=== PATIENT | female | born 1950 | race Caucasian/White ===

== ENCOUNTER 2019-09-19 11:53 | Outpatient (CLI) | payer MEDICARE, SELFPAY ==
--- NOTE | 2019-09-19 | XR_ITS ---
WS: [id number] Lumbar spine, AP, lateral, L5-S1 spot, flexion and extension lateral, 09/19/2019 Clinical Data: BILATERAL LEG PAIN Comparison: None. Findings: No compression fractures or subluxation is seen. No disc space narrowing is seen. The transverse proc esses and SI joints are normal. No subluxation or limitation of motion occurs during flexion or extension. XR/XR lumbar spine min 4V [id number] Impression: Negative lumbar spine. Negative for limitation of motion or subluxation on flexion or extension.
== END 2019-09-19 11:54 | disposition home or self-care (01) ==
LOC: RADOUTREAD 15:29
PROVIDERS: Family Provider Family Medicine; PCP Family Medicine; Visit Provider Family Medicine
DX: Z76.89 Persons encountering health services in other specified circumstances (principal)

== ENCOUNTER 2019-10-08 10:55 | Outpatient (CLI) | payer MEDICARE, SELFPAY ==
--- NOTE | 2019-10-08 11:46 | MR_ITS ---
WS: [id number] MRI LUMBAR SPINE NONCONTRAST TECHNIQUE: Sagittal T1, T2 and STIR imaging. Axial T1 and T2 imaging. CLINICAL INFORMATION: BILATERAL LEG PAIN COMPARISON: None. FINDINGS: Mild lumbar curve. No acute compression. No high-grade central canal stenosis. L1-L2: Normal. L2-L3: Tiny right foraminal protrusion with mild right foraminal narrowing. Slight narrowing of the r ight subarticular recess. Left foramen is patent. Mild facet arthropathy. L3-L4: Mild annular bulging with slight effacement of the ventral thecal sac. Minimal narrowing of th e right subarticular recess. Spinal canal and foramen are patent. Mild facet arthropathy. L4-L5: Mild annular bulging with slight effacement of the ventral thecal sac. Narrowing subarticular recess bilaterally. Moderate facet arthropathy. Mild right and no significant left foraminal narrowin g. L5-S1: No significant disc bulging. Mild facet arthropathy. Spinal canal and foramen are patent. Postoperative changes anterior cervical fusion C5-C6. Visualized pelvic bony structures: Normal. Paravertebral soft tissues: Normal. MR/MR lumbar spine wo con* [id number] IMPRESSION: 1. Mild lumbar curve. No acute compression. No high-grade central canal stenos is. 2. Small right subarticular and proximal foraminal protrusion L2-3 with mild r ight foraminal narrowing. Slight encroachment traversing right L3 and exiting r ight L2 nerve roots. 3. Mild narrowing of the right L3-4 subarticular recess. 4. Annular bulging L4-5 with slight effacement of ventral thecal sac and narro wing of the subarticular recess bilaterally. Mild right foraminal narrowing. 5. Moderate facet arthropathy L3-L4 and L4-L5.
== END 2019-10-08 10:56 | disposition home or self-care (01) ==
LOC: RADWPI 11:00
PROVIDERS: Family Provider Family Medicine; PCP Family Medicine; Visit Provider Family Medicine
DX: M51.26 Other intervertebral disc displacement, lumbar region (principal); M79.604 Pain in right leg; M79.605 Pain in left leg
CPT/HCPCS: 72148

== ENCOUNTER 2020-06-20 17:17 | Emergency (ER) | payer MEDICARE, SELFPAY ==
[2020-06-20] VITALS (7 sets, daily range): BP systolic 109–154; BP diastolic 79–89; PULSE 84–101; RESP 18–20; TEMP 37.6; O2SAT 93–97; BMI 23.1
--- NOTE | 2020-06-20 18:09 | XR_ITS ---
WS: [id number] XR chest 1V portable [id number] REASON FOR EXAM: fever FINDINGS: There may be a small infiltrate adjacent to the right heart border in the inferior medial right lung field. The lungs are otherwise unremarkable. The heart and mediastinum are within normal limits. XR/XR chest 1V portable [id number] IMPRESSION: Possible small infiltrate adjacent to the right heart border as above compatibl e with acute subacute pneumonitis.
--- NOTE | 2020-06-20 18:41 | W.ED.COVID ---
HPI - COVID General: Chief Complaint: COVID symptoms Stated Complaint: Mild covid symptoms Time Seen by Provider: 06/20/20 17:38 Source: patient Mode of arrival: ambulatory Limitations: no limitations Triage information: Has fever, cough or shortness of breath. No known COVID + exposure last 14 days History of Present Illness: HPI Narrative: Patient has had a few symptoms for the last 2 weeks. 13 days ago, she received the pneumovax and 4 hours after that she had an diarrhea and vomiting. Diarrhea has resolved but she is still vomiting. She got a fever of 103 5 days ago and has daily intermittent fever since then, but not as high. She continues to vomit. Had a cough yesterday but none so far today. She denies urinary symptoms. MD complaint: has COVID symptoms Prior covid testing: yes, results known COVID 19 common symptoms: positive fever(s), chills, cough, fatigue, nausea and vomiting; negative productive cough, dyspnea, body aches, headache(s), loss of sense of smell and/or taste, throat pain, nasal congestion or diarrhea COVID 19 other sytmptoms: negative chest pressure, chest pain, pleuritic pain, requiring oxygen, requiring more oxygen, respiratory distress, cyanosis, lethargy, confusion or new neurological complaints COVID Results: SARS-CoV-2 Antigen (Rapid) Negative (Negative) 06/20/20 18:55 06/20/20 SARS-CoV-2 RNA (RT-PCR) Pending 06/20/20 18:55 06/20/20 Review of Systems General: Reports: 10 or more systems reviewed and unremarkable except in HPI and below Const: Reports: fever(s), chills and fatigue; Denies: body aches Eyes: Denies: change in vision or blurry vision ENMT: Denies: throat pain or nasal congestion Card: Denies: chest pain Resp: Denies: dyspnea or productive cough GI: Reports: nausea and vomiting; Denies: diarrhea : Denies: flank pain, difficulty voiding, dysuria, urinary frequency, urinary urgency or urinary hesitancy Musc: Denies: neck pain, back pain or extremity swelling Skin/Breast: Denies: rash, pruritus or erythema Neuro: Denies: headache(s) or confusion Endo: Denies: polyuria, polydipsia or tired all the time PFSH ED PFSH: Social History Smoking and tobacco status: never smoked Alcohol intake: never Substance/Drug Use: never Physical Exam Const: COMMON NORMALS: no acute distress, average body habitus, patient oriented x3, no limitations, healthy appearing, alert and well nourished HENMT: COMMON NORMALS: normocephalic, atraumatic and moist oral mucous membranes HEAD & SCALP: normocephalic and atraumatic Neck/C-Spine: COMMON NORMALS: no meningeal signs and no JVD Resp: COMMON NORMALS: normal respiratory effort, No retractions, No use of accessory muscles, clear to auscultation bilaterally and percussion normal AUSCULTATION: clear to auscultation bilaterally PERCUSSION: percussion normal Cardio: COMMON NORMALS: no JVD, regular rate, regular rhythm, S1 normal heart sound present, S2 normal heart sound present, No gallops present (Cardio), No clicks present (Cardio), No murmurs present (Cardio), No rub (Cardio) and Peripheral pulses 2+ throughout RATE: regular rate RHYTHM: regular rhythm HEART SOUNDS: S1 normal heart sound present and S2 normal heart sound present PERIPHERAL PULSES: Peripheral pulses 2+ throughout GI: COMMON NORMALS: Normal to inspection, nondistended, normoactive bowel sounds present, Soft to palpation, non-tender, No hepatosplenomegaly present, no masses and no bruits PALPATION: Yes Soft to palpation and Yes No hepatosplenomegaly present Extremity: COMMON NORMALS: normal to inspection, full ROM, capillary refill normal, no calf tenderness and no pedal edema Neuro: COMMON NORMALS: patient oriented x3 SENSORIUM/ORIENTATION: Yes alert MENINGEAL SIGNS: Yes no meningeal signs Skin: COMMON NORMALS: no rashes or lesions noted, no wounds, turgor normal, no jaundice, no petechiae and no mottling GENERAL SKIN EXAM: no rashes or lesions noted and turgor normal Course Reevaluation(s): Reevaluation #1: Discussed her labs and imaging findings with her - negative for acute findings. [facility] send out labs pending. She looks good and likely has a viral illness. Will discharge her home on conservative measures. She voiced understanding and all questions answered. Time: 21:02 Vital Signs: Vital signs: Vital Signs Temperature 99.6 F 06/20/20 17:24 Pulse Rate 89 06/20/20 21:25 Respiratory Rate 18 06/20/20 21:25 Blood Pressure 109/79 06/20/20 21:25 Pulse Oximetry 95 06/20/20 21:25 MDM - COVID MDM Narrative Medical decision making narrative: Patient with clinical features consistent with viral gastroenteritis. She was tested for COVID 19. Tested negative for the rapid test and she has the PCR test sent out. She is discharged home on conservative measures. Differential Diagnosis Differential diagnosis: Likely COVID 19, influenza and other viral infection Medical Records Attestation: I reviewed the patient's medical records. Lab Data Attestation: I reviewed the patient's lab results. Result diagrams: 06/20/20 18:55 06/20/20 18:55 Labs: Lab Results 06/20/20 06/20/20 06/20/20 Range/Units 18:55 18:55 18:55 WBC 5.4 (4.0-10.0) 10^3/uL RBC 4.86 (4.1-5.3) 10^6/uL Hgb 14.5 (11.5-15.3) g/dL Hct 44.5 (37.0-47.0) % MCV 91.6 (81-99) fL MCH 29.8 (28.0-34.0) pg MCHC 32.6 (30.0-36.0) g/dL RDW 12.7 (12.1-15.1) % Plt Count 178 (130-400) 10^3/cmm MPV 10.4 (7.4-10.4) fL Neut % (Auto) 45.8 % Lymph % (Auto) 44.1 % [place] % (Auto) 9.5 % Eos % (Auto) 0.0 % Baso % (Auto) 0.4 % Neut # (Auto) 2.47 (1.8-7.7) 10^3/uL Lymph # (Auto) 2.4 (0.8-4.8) 10^3/uL [place] # (Auto) 0.5 (0.2-0.9) 10^3/uL Eos # (Auto) 0.0 (0.0-0.8) 10^3/uL Baso # (Auto) 0.0 (0.0-0.1) 10^3/uL Nucleated RBC % (auto) 0 % Nucleated RBCs # 0.0 /100WBC Sodium 139 (136-145) mmol/L Potassium 3.8 (3.5-5.1) mmol/L Chloride 103 (98-107) mmol/L Carbon Dioxide 21 L (22-29) mmol/L Anion Gap 18.8 (5-19) BUN 18 (8-23) mg/dL Creatinine 0.5 (0.5-0.9) mg/dL GFR Calculation 123.1 (90-130) mL/min Glucose 106 (65-115) mg/dL Calculated Osmolality 290 (285-295) mOsm/kg Lactic Acid 0.8 (0.5-2.2) mmol/L Calcium 8.9 (8.5-10.5) mg/dL Total Bilirubin 0.2 (0.15-1.2) mg/dL AST 29 (0-32) U/L ALT 20 (0-33) U/L Alkaline Phosphatase 71 (35-105) IU/L C-Reactive Protein 7.8 H (0.0-4.9) mg/L Total Protein 7.4 (6.6-8.7) g/dL Albumin 4.3 (3.5-5.2) g/dL Globulin 3.1 (1.3-4.6) g/dL Procalcitonin 0.07 (0-0.5) ng/mL Urine Color (Yellow) Urine Appearance (CLEAR) Urine pH (5-7) Ur Specific [place] (1.005-1.030) Urine Protein (Negative) Urine Glucose (UA) (Normal) Urine Ketones (Negative) Urine Blood (Negative) Urine Nitrate (Negative) Urine Bilirubin (Negative) Urine Urobilinogen (Negative) mg/dL Ur Leukocyte Esterase (Negative) Influenza Type A Ag (Negative) Influenza Type B Ag (Negative) SARS-CoV-2 Ag (Rapid) (Negative) 06/20/20 06/20/20 06/20/20 Range/Units 18:55 18:55 19:45 WBC (4.0-10.0) 10^3/uL RBC (4.1-5.3) 10^6/uL Hgb (11.5-15.3) g/dL Hct (37.0-47.0) % MCV (81-99) fL MCH (28.0-34.0) pg MCHC (30.0-36.0) g/dL RDW (12.1-15.1) % Plt Count (130-400) 10^3/cmm MPV (7.4-10.4) fL Neut % (Auto) % Lymph % (Auto) % [place] % (Auto) % Eos % (Auto) % Baso % (Auto) % Neut # (Auto) (1.8-7.7) 10^3/uL Lymph # (Auto) (0.8-4.8) 10^3/uL [place] # (Auto) (0.2-0.9) 10^3/uL Eos # (Auto) (0.0-0.8) 10^3/uL Baso # (Auto) (0.0-0.1) 10^3/uL Nucleated RBC % (auto) % Nucleated RBCs # /100WBC Sodium (136-145) mmol/L Potassium (3.5-5.1) mmol/L Chloride (98-107) mmol/L Carbon Dioxide (22-29) mmol/L Anion Gap (5-19) BUN (8-23) mg/dL Creatinine (0.5-0.9) mg/dL GFR Calculation (90-130) mL/min Glucose (65-115) mg/dL Calculated Osmolality (285-295) mOsm/kg Lactic Acid (0.5-2.2) mmol/L Calcium (8.5-10.5) mg/dL Total Bilirubin (0.15-1.2) mg/dL AST (0-32) U/L ALT (0-33) U/L Alkaline Phosphatase (35-105) IU/L C-Reactive Protein (0.0-4.9) mg/L Total Protein (6.6-8.7) g/dL Albumin (3.5-5.2) g/dL Globulin (1.3-4.6) g/dL Procalcitonin (0-0.5) ng/mL Urine Color Yellow (Yellow) Urine Appearance Clear (CLEAR) Urine pH 5 (5-7) Ur Specific [place] 1.025 (1.005-1.030) Urine Protein Neg (Negative) Urine Glucose (UA) Norm (Normal) Urine Ketones 1+ H (Negative) Urine Blood Neg (Negative) Urine Nitrate Negative (Negative) Urine Bilirubin Neg (Negative) Urine Urobilinogen Norm (Negative) mg/dL Ur Leukocyte Esterase Negative (Negative) Influenza Type A Ag Negative (Negative) Influenza Type B Ag Negative (Negative) SARS-CoV-2 Ag (Rapid) Negative (Negative) COVID Results: SARS-CoV-2 Antigen (Rapid) Negative (Negative) 06/20/20 18:55 06/20/20 SARS-CoV-2 RNA (RT-PCR) Pending 06/20/20 18:55 06/20/20 Imaging Data CXR: Attestation: I personally reviewed and interpreted this imaging study as follows: My impression: No acute findings Discharge Plan Discharge Patient Disposition: Home Clinical Impression: Viral gastroenteritis Condition: Stable Prescriptions: New Zofran 4 mg tablet 4 mg PO Q8H PRN (Reason: nausea and vomiting) 5 Days Qty: 20 RF: 0 Discharge Orders: Discharge Order (Routine); Ordered 06/20/20 Ordered By: Keila Chang Referrals: Morgan Harris MD [Primary Care Provider] - 1-3 days Discharge Diet: Advance as tolerated Discharge Activity: Increase activity as tolerated Patient Instructions: Gastroenteritis (ED) Activity Restrictions/Additional Instructions: Return for any new or worsening symptoms. Follow-up with your primary care provider within 3 days. Drink plenty of fluids to keep well-hydrated. Discharge Date/Time: 06/20/20 21:29 Coding Level of Care Code ED Ski Edge Painter for Rajeev Fwd Exam Comprehensive
[2020-06-20] MEDS: ondansetron 2 mg/ML SDV 2 mL 4 MG IVP (19:12)
[2020-06-20] MEDS: sodium chloride 0.9% 1,000 ML 999 ML IV (19:12)
--- NOTE | 2020-06-20 19:15 | PC.NURSE ---
Received report from ADILSON Echeverria
--- NOTE | 2020-06-20 19:15 | PC.NURSE ---
Per chau Echeverria pt needs a updated BP
[2020-06-20 19:18] LABS: Basophils % 0.4 %; Hematocrit 44.5 % (37.0-47.0); Hemoglobin 14.5 g/dL (11.5-15.3); Lymphocytes # 2.4 10^3/uL (0.8-4.8); Lymphocytes % 44.1 %; Mean Corpuscular HGB Conc 32.6 g/dL (30.0-36.0); Mean Corpuscular Hemoglobin 29.8 pg (28.0-34.0); Mean Corpuscular Volume 91.6 fL (81-99); Mean Platelet Volume 10.4 fL (7.4-10.4); Monocytes # 0.5 10^3/uL (0.2-0.9); Monocytes % 9.5 %; Neutrophils # 2.47 10^3/uL (1.8-7.7); Neutrophils % 45.8 %; Nucleated Red Blood Cells % 0 %; Platelet Count 178 10^3/cmm (130-400); Red Blood Count 4.86 10^6/uL (4.1-5.3); Red Cell Distribution Width 12.7 % (12.1-15.1); White Blood Count 5.4 10^3/uL (4.0-10.0)
[2020-06-20 19:35] LABS: Lactic Sepsis W/Reflex 0.8 mmol/L (0.5-2.2)
[2020-06-20 19:37] LABS: Influenza A by IFA Negative (Negative); Influenza B by IFA Negative (Negative)
[2020-06-20 19:38] LABS: SARS Covid-2 Antigen Negative (Negative)
[2020-06-20 19:46] LABS: Procalcitonin 0.07 ng/mL (0-0.5)
[2020-06-20 19:48] LABS: Add Urine Microscopic? NO
[2020-06-20 19:50] LABS: Bilirubin Urine Neg (Negative); Blood Urine Neg (Negative); Glucose Urine UA Norm (Normal); Ketones Urine 1+ (Negative); Leukocyte Esterase Urine Negative (Negative); Nitrate Urine Negative (Negative); Protein Urine Neg (Negative); Specific Gravity, Urine 1.025 (1.005-1.030); Urine Appearance Clear (CLEAR); Urine Color Yellow (Yellow); Urobilinogen Urine Norm (Negative); pH Urine 5 (5-7)
[2020-06-20 19:57] LABS: Alanine Aminotransferase 20 U/L (0-33); Albumin Level 4.3 g/dL (3.5-5.2); Alkaline Phosphatase 71 IU/L (35-105); Anion Gap 18.8 (5-19); Aspartate Amino Transferase 29 U/L (0-32); Blood Urea Nitrogen 18 mg/dL (8-23); C Reactive Protein 7.8 mg/L (0.0-4.9); Calcium 8.9 mg/dL (8.5-10.5); Carbon Dioxide 21 mmol/L (22-29); Chloride 103 mmol/L (98-107); Creatinine Clr Calc Pharmacy 68.7428; Globulin 3.1 g/dL (1.3-4.6); Glomerular Filtration Rate 123.1 mL/min (90-130); Glucose 106 mg/dL (65-115); Osmolality Calculated 290 mOsm/kg (285-295); Potassium 3.8 mmol/L (3.5-5.1); Sodium 139 mmol/L (136-145); Total Bilirubin 0.2 mg/dL (0.15-1.2); Total Protein 7.4 g/dL (6.6-8.7)
--- NOTE | 2020-06-20 20:13 | PC.NURSE ---
pt stated she has not sleep for 48 hours in a row over the past week. Pt stated she has seen her physician and received a medication Trazodone and it has help Pt continued to stated she has a low [id number]% at home x1 and notified her daughters, which in turn keep her up all night every 30 minutes, pt stated she was unable to sleep.
--- NOTE | 2020-06-20 20:36 | PC.NURSE ---
Daughter called to check on status of pt. Daughter and pt's in car in the parking lot. notified provider of family's question about admission or discharge. Provider stated he will be discharge pt soon.
--- NOTE | 2020-06-20 21:25 | PC.NURSE ---
per pt waiting for results.
[2020-06-21 10:14] LABS: NT Pro B Type Natriuretic Pept 41 pg/mL (0-125)
[2020-06-23 11:23] LABS: Quest SARS-CoV-2 RNA NOT DETECTED (NOT DETECTED)
--- NOTE | 2020-06-23 17:47 | PC.NURSE ---
pt contacted and informed of her covid results
--- NOTE | 2020-06-24 08:59 | PC.NURSE ---
spoke to Pt and gave negative COVID results. Pt confirmed understanding.
== END 2020-06-20 21:29 | disposition home or self-care (01) ==
PROVIDERS: Emergency Provider Family Medicine; Family Provider Family Medicine; PCP Family Medicine
DX: A08.4 Viral intestinal infection, unspecified (principal)
CPT/HCPCS: 12345; 71045; 80053; 81003; 83605; 83880; 84145; 85025; 86140; 87426; 87635; 87804; 96361; 96374; 99283; 99284; J2405; J7030

== ENCOUNTER 2020-06-21 16:01 | Outpatient (CLI) | payer MEDICARE, SELFPAY ==
[2020-06-21 16:51] LABS: D Dimer 0.62 ug/mIFEU (0-0.59)
== END 2020-06-21 16:02 | disposition home or self-care (01) ==
LOC: LAB 16:04
PROVIDERS: PCP Family Medicine; Visit Provider Family Medicine
DX: R06.00 Dyspnea, unspecified (principal)
CPT/HCPCS: 85378

== ENCOUNTER 2020-06-24 12:54 | Outpatient (CLI) | payer MEDICARE, SELFPAY ==
[2020-06-24 13:31] LABS: D Dimer 0.59 ug/mIFEU (0-0.59)
== END 2020-06-24 12:55 | disposition home or self-care (01) ==
LOC: LAB 12:57
PROVIDERS: PCP Family Medicine; Visit Provider Family Medicine
DX: R50.9 Fever, unspecified (principal); R79.89 Other specified abnormal findings of blood chemistry
CPT/HCPCS: 85378; 86140

== ENCOUNTER 2022-06-12 13:48 | Outpatient (CLI) | payer MEDICARE, SELFPAY ==
--- NOTE | 2022-06-12 13:55 | XR_ITS ---
WS: [id number] DEXA (DUAL ENERGY X-RAY ABSORPTIOMETRY) Bone mineral density was performed using a [id number] machine. HISTORY: POST MENOPAUSAL COMPARISON: None available. Lumbar spine BMD (L1-L4): 1.084 g/cm2 T score: -0.8 Z score: 0.8 Total hip BMD: Left: 0.909 g/cm2. T score: -0.8 Z score: 0.6 Right: 0.912 g/cm2. T score: -0.8 Z score: 0.6 10 year probability of a major osteoporotic fracture is 9.6%. XR/XR DEXA axial skeleton* [id number] IMPRESSION: NORMAL BONE MINERAL DENSITY based upon the WHO classification for females.
== END 2022-06-12 13:49 | disposition home or self-care (01) ==
LOC: RAD 13:50
PROVIDERS: PCP Family Medicine; Visit Provider Family Medicine
DX: Z78.0 Asymptomatic menopausal state (principal)
CPT/HCPCS: 77080

== ENCOUNTER → 2022-08-25 10:23 | Outpatient (BNVA) | payer MEDICARE, SELFPAY | PROVIDERS: PCP Family Medicine; Visit Provider Internal Medicine | DX: R00.0 Tachycardia, unspecified (principal); E03.9 Hypothyroidism, unspecified; R79.89 Other specified abnormal findings of blood chemistry; Z79.890 Hormone replacement therapy | CPT/HCPCS: 36415; 83516; 84439; 84443; 84480; 86376; 86800; 99204 ==

== ENCOUNTER 2022-09-06 10:24 | Outpatient (CLI) | payer MEDICARE, SELFPAY | END 2022-09-06 10:25 | disposition home or self-care (01) | LOC: LAB 10:25 | PROVIDERS: PCP Family Medicine; Visit Provider Family Medicine | DX: Z01.89 Encounter for other specified special examinations (principal) | CPT/HCPCS: 87493; 87506 ==

== ENCOUNTER 2022-10-27 08:37 | Outpatient (CLI) | payer MEDICARE, SELFPAY ==
[2022-10-27 09:53] LABS: Free T4 Free Thyroxine 1.29 ng/dL (0.82-1.77); Thyroid Stimulating Hormone 0.77 uIU/mL (0.27-4.20)
[2022-10-28 08:05] LABS: T3 Total 91 ng/dL (76-181)
== END 2022-10-27 08:38 | disposition home or self-care (01) ==
LOC: LAB 08:40
PROVIDERS: PCP Family Medicine; Visit Provider Internal Medicine
DX: E03.9 Hypothyroidism, unspecified (principal); R79.89 Other specified abnormal findings of blood chemistry
CPT/HCPCS: 36415; 84439; 84443; 84480

== ENCOUNTER → 2022-11-01 12:54 | Outpatient (BNVA) | payer MEDICARE, SELFPAY | PROVIDERS: PCP Family Medicine; Visit Provider Internal Medicine | DX: E06.3 Autoimmune thyroiditis (principal); E03.8 Other specified hypothyroidism; R00.0 Tachycardia, unspecified; Z79.890 Hormone replacement therapy | CPT/HCPCS: 99214 ==

== ENCOUNTER 2022-12-22 09:18 | Outpatient (CLI) | payer MEDICARE, SELFPAY ==
[2022-12-22 10:14] LABS: Free T4 Free Thyroxine 1.29 ng/dL (0.82-1.77); Thyroid Stimulating Hormone 1.24 uIU/mL (0.27-4.20)
[2022-12-25 01:54] LABS: T3 Total 97 ng/dL (76-181)
== END 2022-12-22 09:19 | disposition home or self-care (01) ==
LOC: LAB 09:21
PROVIDERS: PCP Family Medicine; Visit Provider Internal Medicine
DX: E03.8 Other specified hypothyroidism (principal); E06.3 Autoimmune thyroiditis; R00.0 Tachycardia, unspecified
CPT/HCPCS: 36415; 84439; 84443; 84480

== ENCOUNTER → 2022-12-26 08:19 | Outpatient (BNVA) | payer MEDICARE, SELFPAY | PROVIDERS: PCP Family Medicine; Visit Provider Internal Medicine | DX: E11.9 Type 2 diabetes mellitus without complications (principal); E03.8 Other specified hypothyroidism; R00.0 Tachycardia, unspecified; E06.3 Autoimmune thyroiditis; Z79.890 Hormone replacement therapy | CPT/HCPCS: 99214 ==

== ENCOUNTER 2023-07-19 13:28 | Outpatient (CLI) | payer MEDICARE, SELFPAY ==
[2023-07-19 15:08] LABS: Free T4 Free Thyroxine 1.18 ng/dL (0.82-1.77); Thyroid Stimulating Hormone 1.31 uIU/mL (0.27-4.20)
== END 2023-07-19 13:29 | disposition home or self-care (01) ==
LOC: LAB 13:34
PROVIDERS: PCP Family Medicine; Visit Provider Internal Medicine
DX: E11.9 Type 2 diabetes mellitus without complications (principal); E03.8 Other specified hypothyroidism; E06.3 Autoimmune thyroiditis
CPT/HCPCS: 36415; 84439; 84443

== ENCOUNTER → 2023-08-03 10:28 | Outpatient (BNVA) | payer MEDICARE, SELFPAY | PROVIDERS: PCP Family Medicine; Visit Provider Internal Medicine | DX: R00.0 Tachycardia, unspecified (principal); E03.8 Other specified hypothyroidism; E06.3 Autoimmune thyroiditis; Z79.890 Hormone replacement therapy | CPT/HCPCS: 99214 ==

== ENCOUNTER 2023-10-03 01:33 | Emergency (ER) | payer MEDICARE, SELFPAY ==
--- NOTE | 2023-10-03 01:39 | XRR_ITS ---
PROCEDURE INFORMATION: Exam: XR Chest Exam date and time: 10/03/2023 1:57 AM Age: 73 years old Clinical indication: Cough and shortness of breath; Additional info: SOB TECHNIQUE: Imaging protocol: Radiologic exam of the chest. Views: 1 view. COMPARISON: CR XR chest 2V* [id number] 06/24/2020 12:21 PM FINDINGS: Lungs: Unremarkable. No consolidation. Pleural spaces: Chronic blunting of the left costophrenic angle. Heart/Mediastinum: Unremarkable. No cardiomegaly. Bones/joints: Unremarkable. XR/XR chest 1V portable [id number] IMPRESSION: No focal acute chest abnormality identified.
[2023-10-03 01:41] VITALS: BP 123/70; PULSE 130; RESP 20; TEMP 38.3; O2SAT 92
--- NOTE | 2023-10-03 01:46 | ED_ITS ---
HPI - SOB/Dyspnea 2 General: Chief Complaint: Shortness of Breath/Dyspnea Stated Complaint: sob, flu A postive Time Seen by Provider: 10/03/23 01:39 Source: patient Mode of arrival: ambulatory Limitations: no limitations History of Present Illness: HPI Narrative: 73-year-old female who states she has bah d cough congestion fever body aches since Sunday she is seen by her PCP Sunday diagnosed with influenza started on Tamiflu. She states that throughout the night she has had much worsening cough and shortness of breath states her pulse ox at home was in the 80s it is 89% here and she has a cough and fever. She denies any vomiting denies any diarrhea. 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 History of head injury Hypothyroidism IBS (irritable bowel syndrome) Vitamin D deficiency Hx of coronary angiogram Surgical History History of hysterectomy History of laminectomy History of colonoscopy Family History Other CAD (coronary artery disease) Cancer Social History Smoking and tobacco/nicotine status: never used tobacco/nicotine Alcohol intake: never Substance/Drug Use: never Physical Exam 2 Const: COMMON NORMALS: patient oriented x3 HENMT: COMMON NORMALS: normocephalic and atraumatic HEAD & SCALP: n ormocephalic and atraumatic Eye: COMMON NORMALS: Equal, round and reactive pupils present and EOMs intact bilaterally PUPIL: Yes Equal, round and reactive pupils present Neck/C-Spine: COMMON NORMALS: full ROM and supple Chest: COMMONS NORMALS: normal inspection of the chest and normal palpation of entire chest wall Resp: COMMON NORMALS: No retractions, No use of accessory muscles and clear to auscultation bilaterally EFFORT & INSPECTION: Yes tachypneic AUSCULTATION: clear to auscultation bilaterally Cardio: COMMON NORMALS: regular rhythm and No murmurs present (Cardio) R ATE: tachycardic RHYTHM: regular rhythm GI: COMMON NORMALS: Normal to inspection, nondistended, normoactive bowel sounds present, Soft to palpation, non-tender and no masses PALPATION: Yes Soft to palpation Extremity: COMMON NORMALS: normal to inspection and full ROM Neuro: COMMON NORMALS: patient oriented x3, moves all extremities and no focal motor deficits Psych: COMMON NORMALS: mental status grossly normal, Normal thought process present and cooperative THOUGHT PROCESS: Normal thought process present Skin: COMMON NORMALS: no rashes or lesions noted and no wounds GENERAL SKIN EXAM: no rashes or lesions noted Course 2 Vital Signs: Vital signs: Vital Signs Temperature 101.0 F H 10/03/23 01:41 Pulse Rate 112 H 10/03/23 03:03 Respiratory Rate 20 H 10/03/23 03:03 Blood Pressure 101/59 10/03/23 03:03 Pulse Oximetry 92 10/03/23 03:03 Oxygen Delivery Me thod Room Air 10/03/23 02:12 MDM - SOB/Dyspnea Medical Decision Making Patient presents here with influenza she had some mild hypoxia with pulse ox at 92 at this time. She has some slight improvement after albuterol treatment she is on Tamiflu. I did offer admission she states she would like to try to continue her treatment at home we will send her Jennyfer Alexis along with albuterol prescription. She is to follow-up with her PCP and return if worsening. Medical Records I reviewed the patient's medical records. Lab Data I reviewed the patient's lab results. 10/03/23 01:52 10/03/23 01:52 Labs/Radiology: Radiology Impressions Chest X-Ray 10/03/23 01:39 IMPRESSION: No focal acute chest abnormality identified. Laboratory Results WBC 12.28 10^3/uL (3.29-11.43) H 10/03/23 01:52 RBC 4.86 10^6/uL (3.85-5.65) 10/03/23 01:52 Hgb 14.80 g/dL (11.27-16.99) 10/03/23 01:52 Hct 44.1 % (36-47) 10/03/23 01:52 MCV 90.7 fl (85-98) 10/03/23 01:52 MCH 30.5 pg (27-33) 10/03/23 01:52 MCHC 33.6 g/dL (30-55) 10/03/23 01:52 RDW 12.5 % (12.1-15.1) 10/03/23 01:52 Plt Count 152 10^3/cmm (157-399) L 10/03/23 01:52 MPV 10.0 fL (7.4-10.4) 10/03/23 01:52 Neut % (Auto) 70.3 % 10/03/23 01:52 Lymph % (Auto) 18.2 % 10/03/23 01:52 [place] % (Auto) 10.6 % 10/03/23 01:52 Eos % (Auto) 0.4 % 10/03/23 01:52 Baso % (Auto) 0.2 % 10/03/23 01:52 Neut # (Auto) 8.62 10^3/uL (1.8-7.7) H 10/03/23 01:52 Lymph # (Auto) 2.2 10^3/uL (0.8-4.8) 10/03/23 01:52 [place] # (Auto) 1.3 10^3/uL (0.2-0.9) H 10/03/23 01:52 Eos # (Auto) 0.1 10^3/uL (0.0-0.8) 10/03/23 01:52 Baso # (Auto) 0.0 10^3/uL (0.0-0.1) 10/03/23 01:52 Nucleated RBC % (auto) 0 % 10/03/23 01:52 Nucleated RBCs # 0.0 /100WBC 10/03/23 01:52 Sodium 136 mmol/L (136-145) 10/03/23 01:52 Potassium 3.9 mmol/L (3.5-5.1) 10/03/23 01:52 Chloride 102 mmol/L (98-107) 10/03/23 01:52 Carbon Dioxide 21 mmol/L (22-29) L 10/03/23 01:52 Anion Gap 16.9 (5-19) 10/03/23 01:52 BUN 20 mg/dL (8-23) 10/03/23 01:52 Creatinine 0.7 mg/dL (0.5-0.9) 10/03/23 01:52 GFR Calculation Not Reportable 10/03/23 01:52 Glucose 118 mg/dL (65-115) H 10/03/23 01:52 Calculated Osmolality 286 mOsm/kg (285-295) 10/03/23 01:52 Lactic Acid 1.0 mmol/L (0.5-2.2) 10/03/23 01:52 Calcium 8.9 mg/dL (8.5-10.5) 10/03/23 01:52 Total Bilirubin 0.4 mg/dL (0.15-1.2) 10/03/23 01:52 AST 25 U/L (0-32) 10/03/23 01:52 ALT 16 U/L (0-33) 10/03/23 01:52 Alkaline Phosphatase 95 U/L (35-105) 10/03/23 01:52 NT-Pro-B Natriuret Pep 46 pg/mL (0-125) 10/03/23 01:52 Total Protein 7.3 g/dL (6.6-8.7) 10/03/23 01:52 Albumin 4.1 g/dL (3.5-5.2) 10/03/23 01:52 Globulin 3.2 g/dL (1.3-4.6) 10/03/23 01:52 All radiology interpretation(s) finalized by discharge Discharge Plan Discharge Patient Disposition: Home Clinical Impression: Influenza Prescriptions: New benzonatate 100 mg capsule 100 mg PO TID PRN (Reason: cough) Qty: 14 0RF albuterol sulfate 90 mcg/actuation HFA aerosol inhaler 2 inh INHALATION Q6H PRN (Reason: shortness of breath or wheezing) Qty: 8 0RF No Action metoprolol succinate 25 mg tablet extended release 24 hr 25 mg PO DAILY cholecalciferol (vitamin D3) 125 mcg (5,000 unit) tablet 125 mcg PO DAILY nitroglycerin 0.4 mg tablet, sublingual 0.4 mg sublingual Q5M PRN Rx Instructions: do not exceed 3 doses per episode aspirin 81 mg tablet,delayed release (DR/EC) 81 mg PO DAILY tramadol 50 mg tablet 50 mg PO DAILY levothyroxine 88 mcg tablet See Rx Instructions .ROUTE .COMPLEX Qty: 90 1RF Dose Instruction: TAKE 1 TABLET BY MOUTH EVERY DAY Rx Instructions: TAKE 1 TABLET BY MOUTH EVERY DAY Discharge Orders: Discharge ED (Routine); Ordered 10/03/23 Ordered By: Boni Sawant Referrals: Morgan Harris MD [Primary Care Provider] - 4-7 days Discharge Diet: Advance as tolerated Discharge Activity: Resume usual activity Patient Instructions: Influenza (ED) Coding Level of Care Code ED Demonstrator Knitting for Rajeev Cortes
[2023-10-03 01:53] VITALS: BP 123/70; PULSE 118; RESP 16; O2SAT 91
[2023-10-03] MEDS: dexamethasone 10 mg/mL INJ IVP (01:58)
[2023-10-03] MEDS: acetaminophen 500 mg Tablet 1000 MG PO (01:58)
[2023-10-03] MEDS: sodium chloride 0.9% 1,000 ML 999 ML IV ×2 (01:59→03:03)
[2023-10-03 02:04] LABS: Basophils % 0.2 %; Eosinophils # 0.1 10^3/uL (0.0-0.8); Eosinophils % 0.4 %; Hematocrit 44.1 % (36-47); Lymphocytes # 2.2 10^3/uL (0.8-4.8); Lymphocytes % 18.2 %; Mean Corpuscular HGB Conc 33.6 g/dL (30-55); Mean Corpuscular Hemoglobin 30.5 pg (27-33); Mean Corpuscular Volume 90.7 fl (85-98); Monocytes # 1.3 10^3/uL (0.2-0.9); Monocytes % 10.6 %; Neutrophils # 8.62 10^3/uL (1.8-7.7); Neutrophils % 70.3 %; Nucleated Red Blood Cells % 0 %; Platelet Count 152 10^3/cmm (157-399); Red Blood Count 4.86 10^6/uL (3.85-5.65); Red Cell Distribution Width 12.5 % (12.1-15.1); White Blood Count 12.28 10^3/uL (3.29-11.43)
[2023-10-03] MEDS: albuterol 2.5 mg/3 mL Neb INHALATION (02:11)
[2023-10-03] MEDS: ipratropium-albuterol 3 mL Neb INHALATION (02:11)
[2023-10-03 02:12] VITALS: PULSE 110; RESP 20; O2SAT 94
[2023-10-03 02:23] VITALS: PULSE 116
[2023-10-03 02:35] LABS: Albumin Level 4.1 g/dL (3.5-5.2); Alkaline Phosphatase 95 U/L (35-105); Anion Gap 16.9 (5-19); Aspartate Amino Transferase 25 U/L (0-32); Blood Urea Nitrogen 20 mg/dL (8-23); Calcium 8.9 mg/dL (8.5-10.5); Carbon Dioxide 21 mmol/L (22-29); Chloride 102 mmol/L (98-107); Globulin 3.2 g/dL (1.3-4.6); Glucose 118 mg/dL (65-115); NT Pro B Type Natriuretic Pept 46 pg/mL (0-125); Osmolality Calculated 286 mOsm/kg (285-295); Potassium 3.9 mmol/L (3.5-5.1); Sodium 136 mmol/L (136-145); Total Bilirubin 0.4 mg/dL (0.15-1.2); Total Protein 7.3 g/dL (6.6-8.7)
[2023-10-03 02:46] LABS: Alanine Aminotransferase 16 U/L (0-33)
[2023-10-03 03:03] VITALS: BP 101/59; PULSE 112; RESP 20; O2SAT 92
--- NOTE | 2023-10-03 03:25 | PC.NURSE ---
Dr Sawant has discussed with patient staying for monitoring due to O2 dropping at times and having a cough. Pt was asked again by myself if she would rather stay to be monitored for her O2. Pt stated she preferred to go home. Pt was educated and educated that if patient gets any worse or they have any new concerns to come back to the ER.
[2023-10-03 03:31] VITALS: O2SAT 94
[2023-10-03] MEDS: albuterol 8 gm MDI 2 PUFF INHALATION (03:31)
== END 2023-10-03 03:33 | disposition home or self-care (01) ==
PROVIDERS: Emergency Provider Emergency Medicine; PCP Family Medicine
DX: J11.1 Influenza due to unidentified influenza virus with other respiratory manifestations (principal); Z79.82 Long term (current) use of aspirin
CPT/HCPCS: 36415; 71045; 80053; 83605; 83880; 85025; 87040; 94640; 96361; 96374; 99284; J1100; J3535; J7030; J7613

== ENCOUNTER 2023-10-10 20:37 | Emergency (ER) | payer MEDICARE, SELFPAY ==
--- NOTE | 2023-10-10 20:44 | XRR_ITS ---
PROCEDURE INFORMATION: Exam: XR Chest Exam date and time: 10/10/2023 9:09 PM Age: 73 years old Clinical indication: Shortness of breath; Additional info: SOB TECHNIQUE: Imaging protocol: Radiologic exam of the chest. Views: 1 view. COMPARISON: CR XR chest 2V* [id number] 10/09/2023 11:21 AM FINDINGS: Lungs: Left lower lobe atelectasis versus infiltrate. Pleural spaces: Trace left pleural effusion. Heart/Mediastinum: Unremarkable. No cardiomegaly. Bones/joints: Unremarkable. XR/XR chest 1V portable [id number] IMPRESSION: 1. Left lower lobe atelectasis versus infiltrate. 2. Trace left pleural effusion.
[2023-10-10 20:48] VITALS: BP 126/73; PULSE 112; RESP 20; TEMP 37; O2SAT 93; BMI 23.1
--- NOTE | 2023-10-10 21:25 | W.ED.URI ---
HPI - URI/Sore Throat General: Chief Complaint: Upper Respiratory Infection Stated Complaint: low o2 Time Seen by Provider: 10/10/23 21:15 History of Present Illness: Patient presents to the ER with complaints of shortness of breath. Patient was diagnosed approximately week ago for with influenza A. Since then she is only gone downhill. She seen her family doctor approximately 3 times. She is on she is been just more short of breath every day since she got diagnosed with influenza. Patient before then was not very short of breath at all. Patient says her oxygen gets all the way down to 83% and she has problems sleeping especially while lying flat. Review of Systems General: Reports: 10 or more systems reviewed and unremarkable except in HPI and below PFSH ED PFSH: Medical History Mass of neck with history of malignant neoplasm History of head injury Hypothyroidism IBS (irritable bowel syndrome) Vitamin D deficiency Hx of coronary angiogram Surgical History History of hysterectomy History of laminectomy History of colonoscopy Family History Other CAD (coronary artery disease) Cancer Social History Smoking and tobacco/nicotine status: never used tobacco/nicotine Alcohol intake: never Substance/Drug Use: never Physical Exam Const: COMMON NORMALS: no acute distress, average body habitus, patient oriented x3, no limitations, healthy appearing, alert and well nourished HENMT: COMMON NORMALS: normocephalic, atraumatic, hearing grossly normal bilaterally, external ears normal, EAC's normal, Normal external nose present, moist oral mucous membranes and oropharynx normal HEAD & SCALP: normocephalic and atraumatic NOSE: Normal external nose present EXTERNAL EAR: Yes external ears normal EXTERNAL AUDITORY CANAL: EAC's normal Neck/C-Spine: COMMON NORMALS: full ROM, no lymphadenopathy, supple, no meningeal signs, no JVD and Thyroid normal THYROID: Thyroid normal Chest: COMMONS NORMALS: normal inspection of the chest and normal palpation of entire chest wall Resp: COMMON NORMALS: normal respiratory effort, No retractions, No use of accessory muscles and clear to auscultation bilaterally AUSCULTATION: clear to auscultation bilaterally Cardio: COMMON NORMALS: no JVD, regular rhythm, S1 normal heart sound present, S2 normal heart sound present, No gallops present (Cardio), No clicks present (Cardio), No murmurs present (Cardio) and No rub (Cardio); negative for regular rate (Mildly tachycardic) RATE: abnormal rate (Mildly tachycardic) RHYTHM: regular rhythm HEART SOUNDS: S1 normal heart sound present and S2 normal heart sound present GI: COMMON NORMALS: Normal to inspection, nondistended, normoactive bowel sounds present, Soft to palpation, non-tender, No hepatosplenomegaly present and no masses PALPATION: Yes Soft to palpation and Yes No hepatosplenomegaly present Neuro: COMMON NORMALS: patient oriented x3 SENSORIUM/ORIENTATION: Yes alert MENINGEAL SIGNS: Yes no meningeal signs Course Vital Signs: Vital signs: Vital Signs Temperature 98.6 F 10/10/23 20:48 Pulse Rate 112 H 10/10/23 20:48 Respiratory Rate 20 H 10/10/23 20:48 Blood Pressure 126/73 10/10/23 20:48 Pulse Oximetry 90 10/10/23 23:04 Oxygen Delivery Me thod Room Air 10/10/23 20:48 Oxygen Flow Rate 2 10/10/23 23:04 MDM - URI/Sore Throat Medical Decision Making Patient is a known diagnosis of influenza, patient is currently on steroids and antibiotics, patient still feels short of breath and noticed her oxygen was all the way down to about 84% on room air. Chest x-ray was obtained which was unchanged. Lab work was obtained which was unremarkable except for 17,000 white count which is probably due to her steroids. Home oxygen study was performed which patient failed. Patient be placed on 2 L of oxygen per nasal cannula patient should follow-up with her PCP within next 7 days. Differential Diagnosis Likely influenza Medical Records I reviewed the patient's medical records. Lab Data I reviewed the patient's lab results. 10/10/23 21:18 10/10/23 21:18 Radiology Impressions Chest X-Ray 10/10/23 20:44 IMPRESSION: 1. Left lower lobe atelectasis versus infiltrate. 2. Trace left pleural effusion. Laboratory Results WBC 17.50 10^3/uL (3.29-11.43) H 10/10/23 21:18 RBC 4.55 10^6/uL (3.85-5.65) 10/10/23 21:18 Hgb 13.70 g/dL (11.27-16.99) 10/10/23 21:18 Hct 42.4 % (36-47) 10/10/23 21:18 MCV 93.2 fl (85-98) 10/10/23 21:18 MCH 30.1 pg (27-33) 10/10/23 21:18 MCHC 32.3 g/dL (30-55) 10/10/23 21:18 RDW 12.6 % (12.1-15.1) 10/10/23 21:18 Plt Count 423 10^3/cmm (157-399) H 10/10/23 21:18 MPV 9.4 fL (7.4-10.4) 10/10/23 21:18 Neut % (Auto) 74.3 % 10/10/23 21:18 Lymph % (Auto) 17.1 % 10/10/23 21:18 [place] % (Auto) 6.3 % 10/10/23 21:18 Eos % (Auto) 0.4 % 10/10/23 21:18 Baso % (Auto) 0.4 % 10/10/23 21:18 Neut # (Auto) 13.00 10^3/uL (1.8-7.7) H 10/10/23 21:18 Lymph # (Auto) 3.0 10^3/uL (0.8-4.8) 10/10/23 21:18 [place] # (Auto) 1.1 10^3/uL (0.2-0.9) H 10/10/23 21:18 Eos # (Auto) 0.1 10^3/uL (0.0-0.8) 10/10/23 21:18 Baso # (Auto) 0.1 10^3/uL (0.0-0.1) 10/10/23 21:18 Nucleated RBC % (auto) 0 % 10/10/23 21:18 Nucleated RBCs # 0.0 /100WBC 10/10/23 21:18 Sodium 139 mmol/L (136-145) 10/10/23 21:18 Potassium 4.0 mmol/L (3.5-5.1) 10/10/23 21:18 Chloride 101 mmol/L (98-107) 10/10/23 21:18 Carbon Dioxide 27 mmol/L (22-29) 10/10/23 21:18 Anion Gap 15.0 (5-19) 10/10/23 21:18 BUN 16 mg/dL (8-23) 10/10/23 21:18 Creatinine 0.7 mg/dL (0.5-0.9) 10/10/23 21:18 GFR Calculation Not Reportable 10/10/23 21:18 Glucose 82 mg/dL (65-115) 10/10/23 21:18 Calculated Osmolality 288 mOsm/kg (285-295) 10/10/23 21:18 Calcium 8.8 mg/dL (8.5-10.5) 10/10/23 21:18 Total Bilirubin 0.3 mg/dL (0.15-1.2) 10/10/23 21:18 AST 28 U/L (0-32) 10/10/23 21:18 ALT 25 U/L (0-33) 10/10/23 21:18 Alkaline Phosphatase 80 U/L (35-105) 10/10/23 21:18 NT-Pro-B Natriuret Pep 73 pg/mL (0-125) 10/10/23 21:18 Total Protein 7.7 g/dL (6.6-8.7) 10/10/23 21:18 Albumin 3.9 g/dL (3.5-5.2) 10/10/23 21:18 Globulin 3.8 g/dL (1.3-4.6) 10/10/23 21:18 All radiology interpretation(s) finalized by discharge Discharge Plan Discharge Patient Disposition: Home Clinical Impression: Influenza, Acute hypoxemic respiratory failure Condition: Stable Prescriptions: No Action metoprolol succinate 25 mg tablet extended release 24 hr 25 mg PO DAILY cholecalciferol (vitamin D3) 125 mcg (5,000 unit) tablet 125 mcg PO DAILY nitroglycerin 0.4 mg tablet, sublingual 0.4 mg sublingual Q5M PRN Rx Instructions: do not exceed 3 doses per episode aspirin 81 mg tablet,delayed release (DR/EC) 81 mg PO DAILY tramadol 50 mg tablet 50 mg PO DAILY levothyroxine 88 mcg tablet See Rx Instructions .ROUTE .COMPLEX Qty: 90 1RF Dose Instruction: TAKE 1 TABLET BY MOUTH EVERY DAY Rx Instructions: TAKE 1 TABLET BY MOUTH EVERY DAY benzonatate 100 mg capsule 100 mg PO TID PRN (Reason: cough) Qty: 14 0RF albuterol sulfate 90 mcg/actuation HFA aerosol inhaler 2 inh INHALATION Q6H PRN (Reason: shortness of breath or wheezing) Qty: 8 0RF Discharge Orders: Discharge ED (Routine); Ordered 10/10/23 Ordered By: Jose Mancia Other Ambulatory Orders: DME: Oxygen (Order) Location: None Selected Ordered By: Jose Mancia Referrals: Morgan Harris MD [Primary Care Provider] - 1 week Patient Instructions: Influenza (ED), Acute Respiratory Failure (ED) Activity Restrictions/Additional Instructions: He failed your home oxygen test and therefore you require 2 L of oxygen per nasal cannula at all times. Please wear this continuously until seen by your family practice physician for further evaluation and treatment. Coding Level of Care Code ED [employer] Consultant for Rajeev Cortes
[2023-10-10 21:49] LABS: Basophils # 0.1 10^3/uL (0.0-0.1); Basophils % 0.4 %; Eosinophils # 0.1 10^3/uL (0.0-0.8); Eosinophils % 0.4 %; Hematocrit 42.4 % (36-47); Lymphocytes % 17.1 %; Mean Corpuscular HGB Conc 32.3 g/dL (30-55); Mean Corpuscular Hemoglobin 30.1 pg (27-33); Mean Corpuscular Volume 93.2 fl (85-98); Mean Platelet Volume 9.4 fL (7.4-10.4); Monocytes # 1.1 10^3/uL (0.2-0.9); Monocytes % 6.3 %; Neutrophils % 74.3 %; Nucleated Red Blood Cells % 0 %; Platelet Count 423 10^3/cmm (157-399); Red Blood Count 4.55 10^6/uL (3.85-5.65); Red Cell Distribution Width 12.6 % (12.1-15.1)
[2023-10-10 21:56] LABS: Alanine Aminotransferase 25 U/L (0-33); Albumin Level 3.9 g/dL (3.5-5.2); Alkaline Phosphatase 80 U/L (35-105); Aspartate Amino Transferase 28 U/L (0-32); Blood Urea Nitrogen 16 mg/dL (8-23); Calcium 8.8 mg/dL (8.5-10.5); Carbon Dioxide 27 mmol/L (22-29); Chloride 101 mmol/L (98-107); Creatinine Clr Calc Pharmacy 64.9761; Globulin 3.8 g/dL (1.3-4.6); Glucose 82 mg/dL (65-115); NT Pro B Type Natriuretic Pept 73 pg/mL (0-125); Osmolality Calculated 288 mOsm/kg (285-295); Sodium 139 mmol/L (136-145); Total Bilirubin 0.3 mg/dL (0.15-1.2); Total Protein 7.7 g/dL (6.6-8.7)
[2023-10-10 23:04] VITALS: O2SAT 84; O2SAT 90
== END 2023-10-11 00:54 | disposition home or self-care (01) ==
PROVIDERS: Emergency Medicine; Emergency Provider Emergency Medicine; PCP Family Medicine
DX: J11.1 Influenza due to unidentified influenza virus with other respiratory manifestations (principal); J96.01 Acute respiratory failure with hypoxia; Z79.82 Long term (current) use of aspirin
CPT/HCPCS: 36415; 71045; 80053; 83880; 85025; 99285

== ENCOUNTER 2023-10-31 11:48 | Outpatient (CLI) | payer MEDICARE, SELFPAY ==
--- NOTE | 2023-10-31 11:51 | CTR_ITS ---
PROCEDURE INFORMATION: Exam: CT Chest With Contrast; Diagnostic Exam date and time: 10/31/2023 12:15 PM Age: 73 years old Clinical indication: Condition or disease; Lung condition and disease; Pleural effusion; Other: Not specified; Additional info: HX of pleural effusion TECHNIQUE: Imaging protocol: Diagnostic computed tomography of the chest with contrast. Radiation optimization: All CT scans at this facility use at least one of these dose optimization techniques: automated exposure control; mA and/or kV adjustment per patient size (includes targeted exams where dose is matched to clinical indication); or iterative reconstruction. Contrast material: OMNI 350; Contrast volume: 100 ml; Contrast route: INTRAVENOUS (IV); COMPARISON: CR (CHEST, ) 10/10/2023 9:09 PM RADIATION DOSE METRICS: Total DLP (mGy-cm): 240.43 FINDINGS: Lungs: Patchy atelectasis involves both lung bases but I see no lung mass or infiltrate. Pleural spaces: Unremarkable. No pneumothorax. No pleural effusion. Heart: Unremarkable. No cardiomegaly. No pericardial effusion. Lymph nodes: Unremarkable. No enlarged lymph nodes. Vasculature: Unremarkable. No aortic aneurysm. Bones/joints: Unremarkable. No acute fracture. Soft tissues: Unremarkable. CT/CT chest w con* [id number] IMPRESSION: Mild bibasilar atelectasis. I see no evidence of pleural effusion.
[2023-10-31] MEDS: iohexol 350 mg/mL 500 mL Btl (per mL) IV (12:28)
== END 2023-10-31 11:49 | disposition home or self-care (01) ==
LOC: RAD 11:48
PROVIDERS: PCP Family Medicine; Visit Provider Family Medicine
DX: J98.11 Atelectasis (principal); Z87.09 Personal history of other diseases of the respiratory system
CPT/HCPCS: 71260; Q9967

== ENCOUNTER 2024-01-17 09:27 | Outpatient (CLI) | payer MEDICARE, SELFPAY ==
[2024-01-17 10:58] LABS: Free T4 Free Thyroxine 1.34 ng/dL (0.82-1.77); Thyroid Stimulating Hormone 0.88 uIU/mL (0.27-4.20)
== END 2024-01-17 09:28 | disposition home or self-care (01) ==
PROVIDERS: PCP Family Medicine; Visit Provider Internal Medicine
DX: R00.0 Tachycardia, unspecified (principal)
CPT/HCPCS: 36415; 84439; 84443

== ENCOUNTER → 2024-07-18 08:17 | Outpatient (BNVA) | payer MEDICARE, SELFPAY | PROVIDERS: PCP Family Medicine; Visit Provider Internal Medicine | DX: R00.0 Tachycardia, unspecified (principal); E03.8 Other specified hypothyroidism; E06.3 Autoimmune thyroiditis; M79.669 Pain in unspecified lower leg; Z79.890 Hormone replacement therapy | CPT/HCPCS: 99214 ==

== ENCOUNTER 2024-12-03 15:26 | Outpatient (CLI) | payer MEDICARE, SELFPAY ==
--- NOTE | 2024-12-03 15:47 | XR_ITS ---
WS: [id number] SCREENING DEXA SCAN [employer] CLINICAL INFORMATION: POSTMENOPAUSAL COMPARISON: 2021 FINDINGS: The L1-L4 bone mineral density measures 1.099 g/cm2. This corresponds to a T score score of -0.7 and Z score of 0.9. Left femoral neck bone mineral density measures 0.895 g/cm2. This corresponds to a T score of -0.9 and Z score of 0.6. Right femoral neck bone mineral density measures 0.912 g/cm2. This corresponds to a T score -0.8of and Z score of 0.7. Mean femoral neck bone mineral density measures 0.904 g/cm2. This corresponds to a T score of -0.8 and Z score of 0.7. XR/XR DEXA axial skeleton* [id number] IMPRESSION: Normal bone mineralization. Patient's FRAX calculated 10 year probability for major osteoporotic fracture i s 10.8% and osteoporotic hip fracture is 1.9%.
== END 2024-12-03 15:27 | disposition home or self-care (01) ==
LOC: RAD 15:30
PROVIDERS: PCP Family Medicine; Visit Provider Family Medicine
DX: Z78.0 Asymptomatic menopausal state (principal)
CPT/HCPCS: 77080

== ENCOUNTER → 2025-01-13 09:26 | Outpatient (BNVA) | payer MEDICARE, SELFPAY | PROVIDERS: PCP Family Medicine; Referring Provider Family Medicine; Visit Provider Psychiatry & Neurology Neurology | DX: R20.2 Paresthesia of skin (principal); M79.601 Pain in right arm; M79.602 Pain in left arm | CPT/HCPCS: 95885; 95913 ==

== ENCOUNTER → 2025-01-28 08:59 | Outpatient (BNVA) | payer MEDICARE, SELFPAY | PROVIDERS: PCP Family Medicine; Visit Provider Internal Medicine | DX: R00.0 Tachycardia, unspecified (principal); E03.8 Other specified hypothyroidism; E06.3 Autoimmune thyroiditis; M79.669 Pain in unspecified lower leg | CPT/HCPCS: 99215 ==